=== PATIENT | female | born 1975 | race Caucasian/White ===

== ENCOUNTER 2017-03-06 17:14 | Emergency (ER) | payer SELFPAY ==
[2017-03-06 17:49] VITALS: BP 135/79
[2017-03-06] MEDS ORDERED: Acetaminophen TAB* 325 MG PO ONE (19:10)
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
== END 2017-03-06 21:42 | disposition home or self-care (01) ==
LOC: ED 17:14
DX: S06.0X0A Concussion without loss of consciousness, initial encounter (principal); S16.1XXA Strain of muscle, fascia and tendon at neck level, initial encounter; S80.01XA Contusion of right knee, initial encounter; S39.012A Strain of muscle, fascia and tendon of lower back, initial encounter; S50.312A Abrasion of left elbow, initial encounter; V29.9XXA Motorcycle rider (driver) (passenger) injured in unspecified traffic accident, initial encounter; Y93.9 Activity, unspecified; Y92.9 Unspecified place or not applicable
CPT/HCPCS: 70450; 72100; 72125; 99282; A9270-GY

== ENCOUNTER 2017-09-05 19:23 | Emergency (ER) | payer OTHER ==
[2017-09-05] MEDS ORDERED: Ketorolac INJ* 30 MG/ML 1 ML VIAL IV PUSH ONE (19:53)
[2017-09-05] MEDS ORDERED: NS 0.9% 1000 ML*IV.FLUID IV ONE (20:20)
[2017-09-05] MEDS ORDERED: Levofloxacin 750 MG IVPREMIX(* 750 MG/150 ML BAG IVPB ONE (20:23)
[2017-09-05] MEDS ORDERED: Metoclopramide IV* 5 MG/ML 2 ML VIAL IV SLOW PU ONE (20:23)
[2017-09-05] MEDS ORDERED: Morphine INJ* 4 MG/ML 1 ML CARPUJECT IV ONE (20:23)
[2017-09-05] MEDS ORDERED: Vancomycin(*) 1,000 MG in NS 0.9% 250 ML* 250 ML IVPB ONE (20:24)
[2017-09-05 20:55] LABS: Urine Appearance Cloudy; Urine Blood Negative (Negative); Urine Color Yellow; Urine Ketones Negative (Negative); Urine Protein Negative (Negative); Urine Specific Gravity 1.021 (1.010-1.030); Urine Urobilinogen Positive (Negative)
[2017-09-05 20:56] LABS: ABS Basophils 0 10^3/ul (0-0.2); ABS Eosinophils 0.3 10^3/ul (0-0.6); ABS Lymphocytes 2.4 10^3/ul (1.0-4.8); ABS Monocytes 0.3 10^3/ul (0-0.8); ABS Neutrophils 2.8 10^3/ul (1.5-7.7); ABS Nucleated RBC 0 10^3/ul; Eosinophil % 5.5 % (0-6); Hematocrit 42 % (35-47); Hemoglobin 14.1 g/dl (12.0-16.0); Lymphocyte % 40.8 % (25-47); Mean Corpuscular HGB Conc 34 g/dl (31-36); Mean Corpuscular Hemoglobin 30 pg (27-31); Mean Corpuscular Volume 88 fL (80-97); Mean Platelet Volume 8 um3 (7.4-10.4); Nucleated Red Blood Cells % 0; Platelet Count 225 10^3/ul (150-450); Red Blood Count 4.71 10^6/ul (4.0-5.4); Red Cell Distribution Width 15 % (10.5-15); White Blood Count 5.9 10^3/ul (3.5-10.8)
--- NOTE | 2017-09-05 20:59 | RAD ---
INDICATION: Fever. COMPARISON: There are no prior studies available for comparison. TECHNIQUE: A portable view of the chest was obtained. FINDINGS: Cardiac and mediastinal contours appear to be within normal limits. The lungs are clear. No pleural effusion is seen. The patient is status post posterior fusion of the visualized portion of the lower dorsal and upper lumbar spine. IMPRESSION: NO EVIDENCE FOR ACUTE DISEASE.
[2017-09-05 21:04] LABS: INR 0.83 (0.77-1.02)
[2017-09-05 21:07] LABS: EGFR Non-African American 118.7 (>60)
--- NOTE | 2017-09-05 21:59 | RAD ---
INDICATION: Right upper quadrant pain. COMPARISON: Comparison is made with a prior CT of the abdomen and pelvis and right upper quadrant ultrasound from April 18, 2017. TECHNIQUE: Multiple real-time images of the right upper quadrant were obtained. FINDINGS: There is a small amount of sludge within the gallbladder. No gallstones are seen. No gallbladder wall thickening or pericholecystic fluid is seen. No intra or extrahepatic ductal distention is present. The common bile duct measured 0.3 cm in diameter. The liver is increased in echogenicity most consistent with fatty infiltration. No significant focal hepatic abnormality is seen. The pancreas is partially obscured by overlying bowel gas. The right kidney is normal in size without evidence for hydronephrosis. IMPRESSION: 1. SMALL AMOUNT OF BILIARY SLUDGE. 2. FINDINGS MOST CONSISTENT WITH HEPATIC STEATOSIS.
[2017-09-05] MEDS ORDERED: Iohexol 300* (CONTRAST) 10 ML SDV IV ONE (22:21)
[2017-09-06] MEDS ORDERED: Loperamide CAP* 2 MG PO ONE (01:12)
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
--- NOTE | 2017-09-06 03:10 | ED ---
Ry Kwon Tecjoon, scribed for Eddie Wright MD on 09/06/17 at 0304 . Progress - Progress Note Progress Note: Patient's stool studies show that the patient's stool is positive for white blood cells. Course/Dx - Course Course Of Treatment: Patient's stool studies show that the patient's stool is positive for white blood cells. As a result, patient will be given Flagyl to take in conjunction with Levaquin for 1 week for possible infectious diarrhea. Stool Culture is pending. - Diagnoses Provider Diagnoses: UTI (urinary tract infection), Gallbladder sludge, Biliary colic, Diarrhea The documentation as recorded by the Ry calix Tecjoon accurately reflects the service I personally performed and the decisions made by Kyle erickson Abdul, MD.
[2017-09-06 04:12] VITALS: BP 126/70
--- NOTE | 2017-09-06 08:09 | RAD ---
INDICATION: Right upper quadrant pain COMPARISON: Right upper quadrant ultrasound August 28, 2017; CT abdomen pelvis January 16, 2017 TECHNIQUE: Axial source images were obtained from the hemidiaphragms to the symphysis pubis following administration of oral and intravenous contrast. 98 mL Omnipaque 300 was utilized. Coronal and sagittal reconstructed images were acquired. Lung bases: There is mild gravity dependent atelectasis. Liver: The liver is mildly enlarged with findings of hepatic steatosis. These findings appear improved. There are no masses. There is no ductal dilatation. Gallbladder: There are no calcified gallstones. There is no evidence of wall thickening or pericholecystic fluid. Concurrent ultrasonography has shown biliary sludge. Spleen: The spleen is normal in size. There are no masses. Pancreas: There is no focal pancreatic mass or ductal dilatation. Adrenal glands: There is no evidence of adrenal mass. Kidneys: The kidneys are normal in size and position. There are prompt nephrograms and there is prompt excretion bilaterally. There are no renal parenchymal masses. There is no evidence of nephrolithiasis. Adenopathy: There is no evidence of adenopathy by size criteria. Fluid collections: There are no free or localized fluid collections. Vessels:There are no significant atherosclerotic changes involving the aorta. There is no focal aneurysm. The iliac vessels are normal in caliber. The IVC appears normal. GI tract: There are no acute CT bowel findings. There is no obstruction. The stomach and small bowel appear normal. The lower GI tract is normal. The cecum, ileocecal valve, and terminal ileum appear normal. There is appendectomy. Pelvic organs: The uterus and adnexa appear normal Bladder: There are no bladder masses. Abdominal and pelvic soft tissues: The extraperitoneal abdominal and pelvic soft tissues appear normal.. Osseous structures: There are no acute osseous findings. There are subacute to chronic left-sided rib fractures There are Smith rods placed in the interval which bridge a transverse fracture of L1. These post traumatic and post surgical changes are new since the preceding examinations. There is a chronic L5 spondylolysis without associated anterolisthesis. Other: None IMPRESSION: No acute CT findings. No mass or inflammatory changes. Postoperative changes of the lumbar spine with subacute left rib and L1 fractures.
--- NOTE | 2017-09-07 12:36 | ED ---
Progress - Progress Note Progress Note: Patient's stool studies show that the patient's stool is positive for white blood cells. UPDATE: stool neg for toxigenic c. diff ZACHARY DIAS 09/07/2017 12:36pm Course/Dx - Course Course Of Treatment: This patient is a 42 year old female BIB[facility] to [facility] accompanied by sister with a chief complaint of right flank pain for around a month, worsening over the past 2 days. The pain radiates towards the back and RLQ. The pain is rated 8/10 in severity. 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 CXR , CT Abd/Pel, US US taken and reviewed. We discussed imaging results with patient and sister. The patient will be discharged with a diagnosis for UTI. Patient is advised to follow up with PCP in 3 days. In addition, patient will be diagnosed with gallbladder sludge/biliary colic. Patient is further advised to follow up with Dr. Jo (Surgery) for the gallbladder sludge. Patient will be given a prescription for Levofloxacin and Ultram to use as instructed. The patient is agreeable to this plan. - Diagnoses Provider Diagnoses: UTI (urinary tract infection), Gallbladder sludge, Biliary colic, Diarrhea
--- NOTE | 2017-09-08 09:00 | PN ---
Progress Note - Progress Note Date of Service: 09/05/17 Note: patient diagnosed and treated for UTI. placed on levofloxacin. has susceptibility on final culture results. no change required at this time.
== END 2017-09-06 03:20 | disposition home or self-care (01) ==
LOC: ED 19:23
DX: N39.0 Urinary tract infection, site not specified (principal); K80.50 Calculus of bile duct without cholangitis or cholecystitis without obstruction; K82.8 Other specified diseases of gallbladder; R19.7 Diarrhea, unspecified; Z88.5 Allergy status to narcotic agent
CPT/HCPCS: 36415; 71010; 74177; 76705; 80053; 81003; 81015; 82270; 83605; 83630; 84702; 85025; 85610; 85730; 86140; 87040; 87045; 87046; 87077; 87086; 87186; 87493; 87899; 96361; 96365; 96375; 96376; 99283; A9270-GY; J1885; J2270; J2765; J3370; Q9967